=== PATIENT | female | born 1995 | race African-American/Black ===

== ENCOUNTER 2018-04-21 18:01 | Emergency (ER) | payer OTHER ==
[2018-04-21] MEDS ORDERED: DEXAMETHASONE 4 MG/ML VIAL ONE (20:20)
[2018-04-21] MEDS ORDERED: KETOROLAC 30 MG/ML INJ ONE (20:21)
[2018-04-21] MEDS ORDERED: NA CHLORIDE 0.9% 1,000 ML ONE (20:21)
[2018-04-21 20:33] LABS: Absolute Lymphocytes (CBC) 1.6 K/uL (0.7-4.9); Absolute Monocytes 0.4 K/uL (0.1-1.3); Absolute Neutrophil 6.5 K/uL (1.8-8.0); Basophils % 0.6 % (0-1.3); Eosinophils % 2.2 % (0-4.4); Hematocrit 40.3 % (36.0-45.0); Lymphocytes % 18.3 % (15.3-44.8); MCH 30.4 pg (27.0-35.0); MCV 88.9 fL (80-100); MPV 9.1 fL (7.6-11.3); Monocytes % 4.8 % (3.3-12.3); RBC Red Blood Cell Count 4.53 M/uL (3.86-4.86)
[2018-04-21 20:47] LABS: Albumin 3.7 g/dL (3.4-5.0); Bilirubin Total 0.5 mg/dL (0.2-1.0); Potassium 4.4 mmol/L (3.5-5.1); Protein, Total 9.2 g/dL (6.4-8.2)
[2018-04-21] MEDS ORDERED: CLINDAMYCIN 600MG/D5W 600 MG/50 ML BAG IV ONE (20:52)
--- NOTE | 2018-04-21 21:25 | RAD REPORT ---
EXAM DESCRIPTION: CT - Soft Tissue Neck W/Contr CLINICAL HISTORY: SORE THROAT Neck pain COMPARISON: No comparisons TECHNIQUE All CT scans are performed using dose optimization technique as appropriate and may includ e automated exposure control or mA/KV adjustment according to patient size. FINDINGS: Nasopharyngeal soft tissues are mildly thickened. Mild fluid is seen along the left paraph aryngeal space. Moderate enlargement both palatine tonsils is seen without a discrete peritonsillar a bscess identified. The left palatine tonsil appears more edematous of the right. Epiglottis and aryepiglottic folds are normal. Piriform sinuses are well aerated. No prevertebral abs cess. The vocal cords are normal in appearance. Salivary glands are normal in appearance. Upper lung story are clear. Included intracranial contents are unremarkable. IMPRESSION: Parapharyngeal inflammatory changes and fluid with enlargement of the palatine tonsils, greater on the left. No discrete peritonsillar abscess detected.
--- NOTE | 2018-04-21 22:12 | EDPHYS ---
Physician Documentation [facility] Name: Scout Miner Age: 22 yrs Sex: Female : 1995 Arrival Date: 04/21/2018 Time: 18:05 Bed 20 Private MD: Tigist Harrison ED Physician Norbert Huerta BOBBIN DRIER: 04/21 22:21 LMP N/A - control method jd3 Historical: - Allergies: 18:13 No Known Allergies; sv - PSHx: 18:13 None; sv - Immunization history:: Flu vaccine is not up to date. - Social history:: Smoking status: Patient/guardian denies using tobacco. - Ebola Screening: : No symptoms or risks identified at this time. Vital Signs: 18:13 BP 118 / 75; Pulse 76; Resp 16; Temp 98.6; Pulse Ox 98% ; Weight 65.77 kg; Height 5 ft. sv 6 in. (167.64 cm); Pain 10/10; 20:34 BP 106 / 79; Pulse 70; Resp 16 S; Pulse Ox 99% on R/A; jd3 21:58 BP 113 / 63; Pulse 64; Resp 16 S; Pulse Ox 99% on R/A; Pain 8/10; jd3 18:13 Body Mass Index 23.40 (65.77 kg, 167.64 cm) sv MDM: 19:19 Patient medically screened. tw4 04/21 19:21 Order name: Strep tw4 04/21 19:54 Order name: CBC with Diff tw4 04/21 19:54 Order name: CMP tw4 04/21 20:35 Order name: CBC with Automated Diff; Complete Time: 20:36 EDMS 04/21 21:23 Order name: Comprehensive Metabolic Panel EDMS 04/21 21:29 Order name: Group A Streptococcus Rapid Sc EDMS 04/21 19:54 Order name: CT Soft Tissue Neck W/contr tw4 04/21 21:27 Order name: CT; Complete Time: 21:57 EDMS 04/21 21:57 Interpretation: Abnormal. tw4 Administered Medications: 20:32 Drug: TORadol 30 mg Route: IVP; Site: right antecubital; jd3 21:58 Follow up: Response: No adverse reaction jd3 20:33 Drug: Decadron - Dexamethasone 6 mg Route: IVP; Site: right antecubital; jd3 21:59 Follow up: Response: No adverse reaction jd3 20:33 Drug: NS 0.9% 1000 ml Route: IV; Rate: 1 bolus; Site: right antecubital; jd3 22:23 Follow up: Response: No adverse reaction; IV Status: Completed infusion; IV Intake: jd3 1000ml 20:50 Drug: Clindamycin 600 mg Route: IVPB; Infused Over: 30 mins; Site: right antecubital; jd3 21:59 Follow up: Response: No adverse reaction; IV Status: Completed infusion jd3 Disposition: 04/21/18 22:11 Discharged to Home. Impression: Acute tonsillitis. - Condition is Stable. - Discharge Instructions: Tonsillitis. - Prescriptions for Cleocin 300 mg Oral Capsule - take 1 capsule by ORAL route every 6 hours for 10 days; 40 capsule. Ibuprofen 800 mg Oral Tablet - take 1 tablet by ORAL route every 12 hours As needed take with food; 20 tablet. Medrol (Aflredo) 4 mg Oral Tablets, Dose Pack - take 1 tablet by ORAL route as directed - follow package instructions; 1 packet. - Medication Reconciliation Form, Thank You Letter, Antibiotic Education, Prescription Opioid Use form. - Follow up: Tigist Harrison MD; When: Upon discharge from the Emergency Department; Reason: Further diagnostic work-up, Recheck today's complaints, Continuance of care. Follow up: Private Physician; When: Upon discharge from the Emergency Department; Reason: Further diagnostic work-up, Recheck today's complaints, Continuance of care. - Problem is new. - Symptoms have improved. Addendum: 05/15/2018 06:25 Addendum: Pt is a 22 year female that was diagnosed with pharyngitis 2 weeks ago comes t w4 to the ED with worsening of sore throat. Pt states that since yesterday she has been having more difficutly with swallowing. Pt states that she is not any breathing difficulties. Pt denies fevers chills. Addendum: ROS: Constitutional: negative for fevers chills malaise HEENT: negative for ear pain, positive for sore throat, trismus Resp: negative for SOB, ERNST, orthopnea CV: negative for CP, palpitations Abdominal: negative for abdominal pain, nausea vomiting Neuro: negative for headache weakness numbness. Addendum: PE: General: well nourished well developed female in NAD HEENT: PERRLA, EOMI, oropharynx reveals asymmetrical tonsilar swelling in the left side, uvular deviation, no angioedema. Neck supple, nontender,anterior lymphadenopathy Resp: CTAB, no resp distress CV: RRR, nl S1, S2 abdomen: sift ND/NT extremities: nontender, no edema. Addendum: ED: CT scan of the neck was negative for phlegmon or abscess or the tonsils. revealed only tonsillitis . Pt given antibiotics, steroids and IVF. Pt states that she felt better. pt instructed to take outpatient antibiotics and followup with PCP. Signatures: Dispatcher [employer] EDKaryna Callahan RN RN Oscar Alamo RN RN jd3 Wadley, Terrence, MD MD tw4 Corrections: (The following items were deleted from the chart) 04/21 22:23 22:11 04/21/2018 22:11 Discharged to Home. Impression: Acute tonsillitis. Condition is jd3 Stable. Forms are Medication Reconciliation Form, Thank You Letter, Antibiotic Education, Prescription Opioid Use. Follow up: Tigist Harrison; When: Upon discharge from the Emergency Department; Reason: Further diagnostic work-up, Recheck today's complaints, Continuance of care. Follow up: Private Physician; When: Upon discharge from the Emergency Department; Reason: Further diagnostic work-up, Recheck today's complaints, Continuance of care. Problem is new. Symptoms have improved. tw4 05/15 06:35 06:24 Addendum: Pt is a 22 year old female with no significant past medical history tw4 that come into the Ed with complaint of tonsillitis.. tw4
--- NOTE | 2018-04-21 22:12 | ER ---
Nurse's Notes [facility] Name: Scout Miner Age: 22 yrs Sex: Female : 1995 Arrival Date: 04/21/2018 Time: 18:05 Bed 20 Private MD: Tigist Harrison Diagnosis: Acute tonsillitis Presentation: 04/21 18:11 Presenting complaint: Patient states: 2 weeks ago was dx with pharyngitis and today was sv dx with abscess on her tonsil. Transition of care: patient was not received from another setting of care. Onset of symptoms was April 2018. Care prior to arrival: None. 18:11 Method Of Arrival: Ambulatory sv 18:11 Acuity: RANDY 3 sv 19:22 Risk Assessment: Do you want to hurt yourself or someone else? Patient reports no jd3 desire to harm self or others. Initial Sepsis Screen: Does the patient meet any 2 criteria? No. Patient's initial sepsis screen is negative. Does the patient have a suspected source of infection? No. Patient's initial sepsis screen is negative. Triage Assessment: 18:14 General: Appears in no apparent distress. uncomfortable, Behavior is calm, cooperative. sv Pain: Complains of pain in left aspect of posterior pharynx Pain currently is 10 out of 10 on a pain scale. Neuro: Level of Consciousness is awake, alert, obeys commands, Oriented to person, place, time, situation, Moves all extremities. Full function Gait is steady. Respiratory: Respiratory effort is even, unlabored, Respiratory pattern is regular, symmetrical. TESTER OPERATOR HELPER: 22:21 LMP N/A - control method jd3 Historical: - Allergies: 18:13 No Known Allergies; sv - PSHx: 18:13 None; sv - Immunization history:: Flu vaccine is not up to date. - Social history:: Smoking status: Patient/guardian denies using tobacco. - Ebola Screening: : No symptoms or risks identified at this time. Screenin:22 Abuse screen: Denies threats or abuse. Nutritional screening: No deficits noted. jd3 Tuberculosis screening: No symptoms or risk factors identified. Fall Risk Ambulatory Aid- None/Bed Rest/Nurse Assist (0 pts). Gait- Normal/Bed Rest/Wheelchair (0 pts) Mental Status- Oriented to own ability (0 pts). Total Titus Fall Scale indicates No Risk (0-24 pts). Assessment: 19:20 General: Appears in no apparent distress. uncomfortable, Behavior is calm, cooperative, jd3 appropriate for age. Pain: Complains of pain in left aspect of posterior pharynx Quality of pain is described as aching, sharp. Neuro: Level of Consciousness is awake, alert, obeys commands, Oriented to person, place, time, situation. Cardiovascular: Capillary refill < 3 seconds Patient's skin is warm and dry. Respiratory: Airway is patent Respiratory effort is even, unlabored, Respiratory pattern is regular, symmetrical, Denies shortness of breath. GI: No signs and/or symptoms were reported involving the gastrointestinal system. : No signs and/or symptoms were reported regarding the genitourinary system. EENT: Throat is reddened has enlarged tonsils Reports pain when swallowing when talking. Derm: Skin is intact, Skin is dry, Skin is normal, Skin temperature is warm. Musculoskeletal: Circulation, motion, and sensation intact. Range of motion: intact in all extremities. 20:33 Reassessment: Patient appears in no apparent distress at this time. Patient and/or jd3 family updated on plan of care and expected duration. Pain level reassessed. Patient is alert, oriented x 3, equal unlabored respirations, skin warm/dry/pink. 21:57 Reassessment: Patient appears in no apparent distress at this time. Patient and/or jd3 family updated on plan of care and expected duration. Pain level reassessed. Patient is alert, oriented x 3, equal unlabored respirations, skin warm/dry/pink. Patient states feeling better. 22:21 Reassessment: Patient appears in no apparent distress at this time. Patient and/or jd3 family updated on plan of care and expected duration. Pain level reassessed. Patient is alert, oriented x 3, equal unlabored respirations, skin warm/dry/pink. Patient states feeling better. Vital Signs: 18:13 BP 118 / 75; Pulse 76; Resp 16; Temp 98.6; Pulse Ox 98% ; Weight 65.77 kg; Height 5 ft. sv 6 in. (167.64 cm); Pain 10/10; 20:34 BP 106 / 79; Pulse 70; Resp 16 S; Pulse Ox 99% on R/A; jd3 21:58 BP 113 / 63; Pulse 64; Resp 16 S; Pulse Ox 99% on R/A; Pain 8/10; jd3 18:13 Body Mass Index 23.40 (65.77 kg, 167.64 cm) sv ED Course: 18:05 Patient arrived in ED. mr 18:05 Tigist Harrison MD is Private Physician. mr 18:12 Triage completed. sv 18:14 Arm band placed on. sv 19:19 Norbert Huerta MD is Attending Physician. tw4 19:19 Oscar No RN is Primary Nurse. jd3 19:22 Patient has correct armband on for positive identification. Bed in low position. Call jd3 light in reach. Side rails up X 1. Adult w/ patient. 20:09 Radiology exam delayed due to lab results not completed at this time. (BUN/Creatinine) vm2 test not completed at this time. 20:15 Inserted saline lock: 20 gauge in right antecubital area, using aseptic technique. mw2 Blood collected. 20:20 CMP Sent. mw2 20:20 CBC with Diff Sent. mw2 20:59 Strep Sent. mw2 21:[address] via wheelchair. vm2 21:12 CT Soft Tissue Neck W/contr Sent. jd3 22:10 Tigist Harrison MD is Referral Physician. tw4 22:19 No provider procedures requiring assistance completed. IV discontinued, intact, jd3 bleeding controlled, No redness/swelling at site. Pressure dressing applied. Administered Medications: 20:32 Drug: TORadol 30 mg Route: IVP; Site: right antecubital; jd3 21:58 Follow up: Response: No adverse reaction jd3 20:33 Drug: Decadron - Dexamethasone 6 mg Route: IVP; Site: right antecubital; jd3 21:59 Follow up: Response: No adverse reaction jd3 20:33 Drug: NS 0.9% 1000 ml Route: IV; Rate: 1 bolus; Site: right antecubital; jd3 22:23 Follow up: Response: No adverse reaction; IV Status: Completed infusion; IV Intake: jd3 1000ml 20:50 Drug: Clindamycin 600 mg Route: IVPB; Infused Over: 30 mins; Site: right antecubital; jd3 21:59 Follow up: Response: No adverse reaction; IV Status: Completed infusion jd3 Intake: 22:23 IV: 1000ml; Total: 1000ml. jd3 Outcome: 22:11 Discharge ordered by . tw4 22:20 Discharged to home ambulatory, with family. jd3 22:20 Condition: stable 22:20 Discharge instructions given to patient, family, Instructed on discharge instructions, follow up and referral plans. medication usage, Demonstrated understanding of instructions, follow-up care, medications, Prescriptions given X 3. 22:23 Patient left the ED. jd3 Signatures: Karyna Schneider RN RN Leeanne Thomas, Naomy 2 Oscar No RN RN jNorbert Askew MD MD tw4 Willi Gates mw2 Corrections: (The following items were deleted from the chart) 18:15 18:13 Pulse 76bpm; Resp 16bpm; Pulse Ox 98%; Temp 98.6F; 65.77 kg; Height 5 ft. 6 in.; sv BMI: 23.4; Pain 10/10; sv
[2018-04-21 23:47] VITALS: TEMP 98.6
[2018-04-21 23:48] VITALS: O2SAT 99
[2018-04-21 23:50] VITALS: BP 113/63
== END 2018-04-21 22:23 | disposition home or self-care (01) ==
LOC: ER 18:01
DX: J03.90 Acute tonsillitis, unspecified (principal)
CPT/HCPCS: 36415; 70491; 80053; 85025; 87070; 87081; 96361; 96365; 96375; 99284; J7030; Q9967